=== PATIENT | female | born 1985 | race Caucasian/White ===

== ENCOUNTER 2020-02-17 14:25 | Emergency (ER) | payer MEDICAID, SELFPAY ==
[2020-02-17 14:26] VITALS: BP 120/69; PULSE 113; RESP 16; TEMP 36.4; O2SAT 95; BMI 29.8
--- NOTE | 2020-02-17 14:44 | RAD_ITS ---
STUDY: X-RAY - LEFT FOOT CLINICAL: Female, 34 years old. lateral side pain, fall TECHNIQUE: 3 view(s) of the foot. COMPARISON: None. FINDINGS: Normal talus, calcaneus, and tarsal bones. Normal visualized subtalar, talonavicular, calcaneocuboid, tarsal and tarsometatarsal articulations. Normal metatarsi. Normal metatarsophalangeal joint of the great toe. Normal tibial and fibular sesamoid bones. Normal interphalangeal joint of the great toe. Normal phalanges of the great toe. Normal second through fifth metatarsophalangeal joints. Normal interphalangeal joints and phalanges of the lesser toes. The soft tissue structures are unremarkable. RAD/Foot min 3 Views IMPRESSION: Normal x-ray examination of the foot. Electronically Signed: Vipul Phelan, at 16:16 EST Tel , Service support ,
--- NOTE | 2020-02-17 14:44 | RAD_ITS ---
STUDY: X-RAY - LEFT ANKLE REASON FOR EXAM: Female, 34 years old. lateral side pain, fall TECHNIQUE: 3 view(s) of the ankle. COMPARISON: None. FINDINGS: Normal visualized distal tibia and fibula. Normal medial and lateral malleoli. Normal tibiotalar articulation and ankle mortise. Normal visualized talus and calcaneus. The visualized subtalar, talonavicular, calcaneocuboid and tarsal articulations are normal. The soft tissue structures are unremarkable. RAD/Ankle min 3 Views IMPRESSION: Normal x-ray examination of the ankle. Electronically Signed: Billie Arenas MD at 16:24 EST , Service support ,
--- NOTE | 2020-02-17 14:51 | ED.DCSUM_ITS ---
History of Present Illness Chief Complaint: Lower Extremity Injury Informant: Patient Occurred: Yesterday Mechanism/Context: Fall Onset: Yesterday Context: Sudden Onset Timing: Continuous Quality of Pain: Sharp Location: Left ankle Current Severity: Moderate Maximum Severity: Severe Worsened by: Walking Relieved by: Nothing Associated Symptoms: Negative for: Parasthesia, Weakness, Loss of Funtion Narrative: 34-year-old female presents with left ankle and foot pain. She slipped down 1 step outside yesterday and the ice. Woke up this morning with worsened pain and swelling and bruising. She is having difficulty bearing weight. No numbness or tingling. She had no other injuries from the fall yesterday and did not hit her head or lose consciousness Tetanus Immunization: Unknown Prior similar symptoms: No Recent Illness/Hospitalization: No Past Medical History - Allergies and Home Meds Allergies/Adverse Reactions: Allergies morphine Allergy (Verified 02/17/20 14:26) Hives Primary Care Physician: Jose Arevalo MD [Primary Care Provider] - Prior records reviewed: Yes Past Medical History: None Surgical History: no surgical history Lives: With Family Smoking Status: Current every day smoker Review of Systems All systems negative except as indicated General: Denies: Chills, Fever, Sweats Eyes: Denies: Visual changes - bilaterally, Diplopia ENT: Denies: Rhinorrhea, Sore throat Cardiovascular: Denies: Chest pain, Palpitations Respiratory: Denies: Dyspnea, Cough, Dyspnea on exertion Gastrointestinal: Denies: Abdominal pain, Nausea, Vomiting, Diarrhea, Melena, Hematochezia Genitourinary: Denies: Dysuria, Hematuria, Frequency Musculoskeletal: Reports: Swelling, Extremity Pain. Denies: Back pain Skin: Denies: Rash, Wounds Neurological: Denies: Headache, Weakness, Numbness Physical Exam Vital Signs/Narrative: Vital Signs Temp Pulse Resp BP Pulse Ox 02/17/20 14:26 97.5 F L 113 H 16 120/69 95 Inital Vital Signs reviewed: Yes - Extremity Exam Left Ankle: Contusion, Edema, - - Patient has swelling and bruising left lateral malleolus and lateral foot. Diffusely tender over lateral malleolus and the fourth and fifth metatarsals. Skin is intact. Normal DP and PT pulses. Normal capillary refill and sensation of all 5 toes. No pain over calcaneus no proxim al fibular TTP General: Well nourished, Well developed Head: Normocephalic, Atraumatic Eyes: Perrl, EOMI ENT: No Trauma, Moist Mucous Membranes Neck: Nontender, Full ROM Cardiovascular: Regular rate, Regular rhythm, No murmurs Respiratory: No distress, CTA bilaterally, Chest nontender Abdomen: Soft, Nontender, Nondistended, Normal bowel sounds Back: Nontender Skin: Normal color, No rash Neurological: Alert, Oriented x3, Cranial nerves II-XII grossly intact, Normal Strength, Normal Sensation Psychological: Normal affect Diagnostic/Tx/Re-eval Impressions Ankle X-Ray 02/17/20 14:44 IMPRESSION: Normal x-ray examination of the ankle. Electronically Signed: Billie Arenas MD at 16:24 EST , Service support , Foot X-Ray 02/17/20 14:44 IMPRESSION: Normal x-ray examination of the foot. Electronically Signed: Vipul Phelan at 16:16 EST Tel , Service support , 02/17/20 14:44 Foot min 3 Views [RAD] Stat XRAY Ankle [Ankle min 3 Views] [RAD] Stat - Medical Decision Making Pain was treated with Tylenol. X-rays of the left ankle and foot showed no acute findings. Patient will be placed in an Aircast. She states that she has crutches at home. She will rest ice and use [id number] Motrin Tylenol for pain and swelling and follow-up with her family doctor. ED Disposition - Plan for ED Patient: Disposition: Home or Assisted Living Diagnosis: Left ankle sprain Instructions: ED Sprain Ankle W X Ray Referrals: Jose Arevalo MD [Primary Care Provider] -
[2020-02-17] MEDS: Acetaminophen 500 MG Tablet 1000 MG PO (15:52)
[2020-02-17 16:56] VITALS: BP 108/72; PULSE 64; RESP 15; O2SAT 98
== END 2020-02-17 16:57 | disposition home or self-care (01) ==
PROVIDERS: Emergency Provider Physician Assistant Medical; PCP Family Medicine
DX: S93.402A Sprain of unspecified ligament of left ankle, initial encounter (principal); W00.1XXA Fall from stairs and steps due to ice and snow, initial encounter; Y93.89 Activity, other specified; Y92.89 Other specified places as the place of occurrence of the external cause; Y99.9 Unspecified external cause status; F17.200 Nicotine dependence, unspecified, uncomplicated; Z88.5 Allergy status to narcotic agent
CPT/HCPCS: 73610; 73630; 99283

== ENCOUNTER 2020-10-19 09:15 | Emergency (ER) | payer MEDICAID, SELFPAY ==
[2020-10-19 09:16] VITALS: BP 117/84; PULSE 90; RESP 20; TEMP 36.6; O2SAT 98; BMI 31.1
--- NOTE | 2020-10-19 09:26 | RAD_ITS ---
STUDY: X-RAY - RIGHT SHOULDER REASON FOR EXAM: Female, 35 years old. injury TECHNIQUE: 4 view(s) of the shoulder. COMPARISON: None. FINDINGS: Normal glenohumeral articulation. Normal acromioclavicular joint. Normal acromion. Normal humeral head and visualized proximal humerus. The soft tissue structures are unremarkable. Normal visualized pulmonary apex. RAD/Shoulder min 2 Views IMPRESSION: Normal x-ray examination of the shoulder. Electronically Signed: Curly Oliveros MD at 10:03 EDT Tel , Service support ,
--- NOTE | 2020-10-19 09:26 | RAD_ITS ---
STUDY: X-RAY - RIGHT ELBOW REASON FOR EXAM: Female, 35 years old. injury TECHNIQUE: 4 view(s) of the elbow. COMPARISON: None. FINDINGS: Normal visualized humerus, radius and ulna. Normal radiocapitellar and ulnotrochlear articulations. The soft tissue structures are unremarkable. RAD/Elbow min 3 Views IMPRESSION: Normal x-ray examination of the elbow. Electronically Signed: Curly Oliveros MD at 10:03 EDT Tel , Service support ,
--- NOTE | 2020-10-19 10:04 | EX.ED.UPPERE ---
HPI History of Present Illness Chief Complaint: Upper Extremity Injury Informant: patient Onset/Context/Timing Onset: Yesterday Context: Sudden Onset (fell) Timing: Continuous Location: R shoulder and elbow Current Severity: Severe Maximum Severity: Severe Worsened by: movement Relieved by: nothing Associated Symptoms Associated Symptoms: Positive for Loss of Funtion (hurts too bad to move); Negative for Parasthesia and Weakness Narrative Narrative: Patient states she was intoxicated last night and fell and does not remember how she landed but woke up with severe pain in her right shoulder and less in her elbow. [id number]. No other injuries. PFSH PFSH no medical history Home Medications tramadol 50 mg PO Q4H PRN PRN 2 Days #10 tab 10/19/20 [Rx Last Taken Unknown] Allergy/AdvReac Type Severity Reaction Status Date / Time morphine Allergy Hives Verified 10/19/20 09:17 Social History Smoking Status: Current every day smoker tobacco type: cigarettes ROS ROS ED Constitutional Constitutional ED: Denies chills or fever(s) Musculoskeletal Musculoskeletal: Reports extremity pain; Denies neck pain Integumentary Denies Abrasions, rash or wounds Neurologic Neurologic: Denies paresthesias or weakness EXAM Physical Exam Const Vital Signs: 10/19/20 09:16 Temperature 97.9 F Temperature Source Temporal Pulse Rate 90 Respiratory Rate 20 H Blood Pressure 117/84 H Blood Pressure Mean 95 Pulse Ox 98 Oxygen Delivery Method Room Air Positive well nourished and well developed General Appearance ED: well developed and NAD Neck full ROM and supple Back/Spine normal ROM and normal to inspection Extremity Extremity Narrative: Limited range of motion right shoulder due to pain. She can abduct about 20 degrees. No deformities. Pain is mostly anterior, she is tender at the acromioclavicular joint mostly. There is minor tenderness anteriorly about the shoulder girdle caudal to the AC joint, but she has a negative Yergason. Nontender scapula, acromion, subacromial fossa, humerus. Able to range the elbow fine, mildly tender at the olecranon process, painless supination and pronation without tenderness at the radial head. Neuro oriented x3, no focal motor deficits and no sensory deficits noted Sensorium / Orientation: alert Psych mental status grossly normal and thought process normal Skin no wounds Rashes: no rashes MDM MDM MDM Narrative Medical decision making narrative: X-rays of the right elbow and shoulder are obtained. My interpretation both are normal. In my judgment clinically and radiographically, this is consistent with an acromioclavicular separation type I, or sprain, given the amount of discomfort she is in for normal x-rays and the area of discomfort and tenderness. She is placed in a sling given Naprosyn and a prescription for tramadol since she is driving. Orthopedic follow-up if not better in 1 week. Discharge Plan Triage Chief Complaint: Upper Extremity Injury ED Provider: Mitch Jara Dx/Rx/DC Orders Clinical Impression: Separation of right acromioclavicular joint, type 1, Contusion of elbow, right Instructions: ED Sprain AC Joint, ED Sling Prescriptions: New tramadol 50 MG tablet 50 mg PO Q4H PRN PRN (Reason: Pain) 2 Days Qty: 10 RF: 0 Primary Care Provider: Jose Arevalo Referrals: Jose Arevalo MD [Primary Care Provider] - Jarvis Guevara MD [STAFF PHYSICIAN] - 1 Week if not improving Disposition Disposition: Home, Self Care
[2020-10-19] MEDS: Ondansetron ODT 4 MG Tablet 8 MG PO (10:24)
[2020-10-19 10:27] VITALS: RESP 16
[2020-10-19] MEDS: Naproxen 250 MG Tablet 500 MG PO (10:28)
== END 2020-10-19 10:32 | disposition home or self-care (01) ==
LOC: ED 10:12
PROVIDERS: Emergency Provider Emergency Medicine; PCP Family Medicine
DX: S43.101A Unspecified dislocation of right acromioclavicular joint, initial encounter (principal); S50.01XA Contusion of right elbow, initial encounter; W19.XXXA Unspecified fall, initial encounter; Y93.9 Activity, unspecified; Y92.89 Other specified places as the place of occurrence of the external cause; Y99.8 Other external cause status; F17.210 Nicotine dependence, cigarettes, uncomplicated; F10.129 Alcohol abuse with intoxication, unspecified; Y90.9 Presence of alcohol in blood, level not specified
CPT/HCPCS: 73030; 73080; 99284

== ENCOUNTER 2021-02-07 17:00 | Emergency (ER) | payer MEDICAID, SELFPAY ==
[2021-02-07 17:00] VITALS: BP 138/97; PULSE 90; RESP 16; TEMP 35.9; O2SAT 100; BMI 30.7
--- NOTE | 2021-02-07 17:22 | EX.ED.DYSGE1 ---
HPI History of Present Illness Chief Complaint: Dental Informant: patient Narrative Narrative: 35-year-old female presenting to the emergency room with dental pain. Patient states that she has appointment 3 weeks to see her dentist. Today she developed significant pain in the lower posterior right tooth and the upper posterior right tooth with pain radiating up towards her head. She notes sensitivity with smoking and drinking. She denies any facial swelling or difficulty swallowing PFSH PFSH Home Medications tramadol 50 mg PO Q4H PRN PRN 2 Days #10 tab 10/19/20 [Rx Last Taken Unknown] hydrocodone-acetaminophen 1 tab PO Q6H PRN PRN 3 Days #12 tablet 02/07/21 [Rx Last Taken Unknown] penicillin V potassium 500 mg PO 4X/DAY #40 tab 02/07/21 [Rx Last Taken Unknown] Allergy/AdvReac Type Severity Reaction Status Date / Time morphine Allergy Hives Verified 02/07/21 17:02 Social History (Updated 02/07/21 @ 17:[address] Yan Smallwood, DO) Smoking Status: Current every day smoker tobacco type: cigarettes substance use type: does not use ROS ROS ED Constitutional Constitutional ED: Denies chills or weight loss Eyes Eyes: Denies change in vision or diplopia ENT ENT ED: Reports other Details: Dental pain ; Denies ear pain, rhinorrhea or sore throat Cardiovascular Cardiovascular: Denies chest pain, orthopnea, palpitations or racing heartbeat Respiratory/Chest Respiratory/Chest: Denies cough, dyspnea or orthopnea Gastrointestinal Gastrointestinal: Denies abdominal pain, diarrhea, nausea or vomiting Genitourinary Genitourinary ED: Denies dysuria, hematuria or urinary frequency Musculoskeletal Musculoskeletal: Denies arthralgias or myalgias Integumentary Denies abscess or rash Neurologic Neurologic: Denies headache(s) or weakness Psychiatric Psychiatric: Denies anxiety, depression, suicidal ideation or suicidal thoughts Endocrine Endocrinology: Denies polydipsia, polyphagia or polyuria Allergic/Immunologic Allergic/Immunologic ED: Denies mouth swelling, tongue swelling or urticaria EXAM Physical Exam Const Vital Signs: 02/07/21 17:00 Temperature 96.6 F L Temperature Source Temporal Pulse Rate 90 Respiratory Rate 16 Blood Pressure 138/97 H Blood Pressure Mean 110 Pulse Ox 100 Oxygen Delivery Method Room Air Positive well nourished and well developed General Appearance ED: well developed HEENT Reports normocephalic, head/scalp atraumatic, TM's clear and moist mucous membranes HEENT Narrative: There is significant decay of the right lower posterior most molar. There is tenderness to palpation of the right posterior upper molar. No facial swelling or erythema noted. No trismus. Floor the mouth is soft. There is no obvious abscess along the gumline Negative for trauma Tympanic Membrane ED: Yes TM's clear Eyes PERRL and EOMs intact bilaterally Neck no lymphadenopathy, supple and no JVD Resp normal respiratory effort and clear to auscultation bilaterally Cardio regular rate, regular rhythm and no murmurs GI normal to inspection, nondistended, normoactive bowel sounds and non-tender Palpation: soft Back/Spine no CVA tenderness and normal ROM Extremity normal to inspection General Extremety ED: Negative for edema General Extremity: Negative for edema Neuro oriented x3 and CN's II-XII intact bilaterally Sensorium / Orientation: alert Motor Exam: strength 5/5 throughout Psych mental status grossly normal Mood & Affect: Negative for depressed or tearful Skin no rashes or lesions noted and no wounds MDM MDM MDM Narrative Medical decision making narrative: Patient be started on antibiotics pain medication. Follow-up with dentistry as soon as able to Discharge Plan Triage Chief Complaint: Dental ED Provider: Yan Smallwood Dx/Rx/DC Orders Clinical Impression: Pain due to dental caries Instructions: ED Dental Pain Prescriptions: New hydrocodone-acetaminophen [hydrocodone-acetaminophen] 1 TABLET tablet 1 tab PO Q6H PRN PRN (Reason: Pain) 3 Days Qty: 12 RF: 0 penicillin V potassium 500 MG tablet 500 mg PO 4X/DAY Qty: 40 RF: 0 No Action tramadol 50 MG tablet 50 mg PO Q4H PRN PRN (Reason: Pain) 2 Days Qty: 10 RF: 0 Primary Care Provider: Care Physician,No Primary Referrals: Care Physician,No Primary [Primary Care Provider] - Activity Restrictions/Additional Instructions: Follow-up with your dentist as soon as possible Disposition Disposition: Home, Self Care
== END 2021-02-07 17:47 | disposition home or self-care (01) ==
PROVIDERS: Emergency Provider Emergency Medicine
DX: K02.9 Dental caries, unspecified (principal); F17.210 Nicotine dependence, cigarettes, uncomplicated
CPT/HCPCS: 99282

== ENCOUNTER 2021-02-12 05:44 | Emergency (ER) | payer MEDICAID, SELFPAY ==
[2021-02-12 05:45] VITALS: BP 132/85; PULSE 78; RESP 18; TEMP 36.6; O2SAT 97; BMI 37.5
--- NOTE | 2021-02-12 06:25 | EDS_ITS ---
HPI History of Present Illness Chief Complaint: Dental Detail of Chief Complaint: Dental pain that started 1 week ago Informant: patient Narrative Narrative: Patient presents to the ER with complaint of dental pain that started a week ago. Patient has an appointment with a dentist in 2 weeks. She was seen in the emergency department 6 days ago and started on penicillin and hydrocodone which she has run out of and continues to have pain. Patient denies any fevers. She denies any trauma although she states she has a broken and decayed tooth. PFSH PFSH Home Medications hydrocodone-acetaminophen 1 tab PO Q6H PRN PRN 3 Days #12 tablet 02/07/21 [Rx Last Taken Unknown] penicillin V potassium 500 mg PO 4X/DAY #40 tab 02/07/21 [Rx Last Taken Unknown] oxycodone-acetaminophen 1 tab PO Q6H PRN PRN 3 Days #15 tablet 02/12/21 [Rx Last Taken Unknown] Allergy/AdvReac Type Severity Reaction Status Date / Time morphine Allergy Hives Verified 02/12/21 05:48 Surgical History (Updated 02/12/21 @ 05:49 by Caitie Chauhan) History of cholecystectomy Social History (Updated 02/07/21 @ 17:[address] Yan Smallwood, DO) Smoking Status: Current every day smoker tobacco type: cigarettes substance use type: does not use ROS ROS ED Constitutional Constitutional ED: Reports systems reviewed and no addt'l complaints, except as documented; Denies body ache(s), change in weight or chills Eyes Eyes: Denies acute decrease in peripheral vision, change in vision, double vision or loss of vision ENT ENT ED: Reports none and other Details: Dental pain ; Denies ear pain, lip swelling, loss taste/smell, neck pain, otalgia or sore throat Cardiovascular Cardiovascular: Reports none; Denies abdominal pain, chest pain with activity, leg edema, lightheadedness, palpitations, rapid heart rate or syncope Respiratory/Chest Respiratory/Chest: Reports none; Denies change in mental status, dry cough, dyspnea, hemoptysis, shortness of breath at rest or shortness of breath with exertion Gastrointestinal Gastrointestinal: Reports none; Denies abdominal pain, change in stool character, diarrhea, hematemesis, hematochezia, melena, rectal bleeding or vomiting Genitourinary Genitourinary ED: Reports none; Denies abdominal discomfort, anuria, dysuria, genital pain or polyuria Musculoskeletal Musculoskeletal: Reports none; Denies arthralgias, back pain, difficulty walking, extremity pain, muscle weakness or myalgias Integumentary Reports none; Denies abscess or rash Neurologic Neurologic: Reports none; Denies abnormal gait, confusion, focal weakness, freq uent falls, headache(s), loss of vision, numbness, paresthesias, radicular pain, vertigo or weakness Psychiatric Psychiatric: Reports systems reviewed and no addt'l complaints, except as documented and none; Denies behavioral changes, confusion, difficulty concentrating, hallucinations, suicidal ideation, tactile hallucinations or visual hallucinations Endocrine Endocrinology: Denies none, cold intolerance, excessive sweating, fatigue or heat intolerance Hematologic/Lymphatic Hematologic/Lymphatic: Reports none; Denies anemia, easy bleeding or easy bruising Allergic/Immunologic Allergic/Immunologic ED: Denies as per HPI, none, lip swelling, mouth swelling, throat swelling, tongue swelling or hives EXAM Physical Exam Const Vital Signs: 02/12/21 05:45 Temperature 98 F Temperature Source Temporal Pulse Rate 78 Respiratory Rate 18 Blood Pressure 132/85 H Blood Pressure Mean 100 Pulse Ox 97 Oxygen Delivery Method Room Air Positive well nourished and well developed General Appearance ED: well developed and NAD HEENT Reports TM's clear and moist mucous membranes HEENT Narrative: Patient has a broken and carried right lower molar that is tender to palpation. No gingival erythema or abscess noted. No trismus on exam. No adenopathy. normocephalic and atraumatic; Negative for trauma or tenderness Tympanic Membrane ED: Yes TM's clear Eyes PERRL and EOMs intact bilaterally General Eye ED: Negative for pale conjunctiva or scleral icterus Neck no lymphadenopathy, supple and no JVD General: Negative for tenderness Chest Wall inspection of chest normal and palpation of chest normal Chest: Negative for tenderness Resp normal respiratory effort and clear to auscultation bilaterally Effort and Inspection: Negative for respiratory distress or pain with movement Auscultation: Negative for rhonchi, wheezes or diminished lung sounds Cardio regular rate, regular rhythm, S1 normal heart sound, S2 normal heart sound and no murmurs Peripheral Pulses: pulses 2+ throughout GI normal to inspection, nondistended, normoactive bowel sounds, soft to palpation, non-tender, non-distended and no masses Back/Spine no CVA tenderness and no thoracic nor lumbar tenderness Extremity normal to inspection General Extremety ED: Negative for edema General Extremity: Negative for edema Neuro oriented x3, CN's II-XII intact bilaterally, no sensory deficits noted and gait normal Sensorium / Orientation: awake, alert, oriented to person, oriented to place and oriented to time Motor Exam: strength 5/5 throughout and strength abnormal Psych mental status grossly normal Skin no rashes or lesions noted and no wounds MDM MDM MDM Narrative Medical decision making narrative: Patient was given 1 dose of OxyIR p.o. Patient will be given a list of dentists in the area so she can try and get in sooner than 2 weeks. Patient to continue with her penicillin. She will be given a prescription for few Percocet for pain. Discharge Plan Triage Chief Complaint: Dental ED Provider: Arturo Etienne Dx/Rx/DC Orders Clinical Impression: Pain, dental Instructions: ED Dental Pain Prescriptions: New oxycodone-acetaminophen [oxycodone-acetaminophen] 1 TABLET tablet 1 tab PO Q6H PRN PRN (Reason: Pain) 3 Days Qty: 15 RF: 0 No Action hydrocodone-acetaminophen [hydrocodone-acetaminophen] 1 TABLET tablet 1 tab PO Q6H PRN PRN (Reason: Pain) 3 Days Qty: 12 RF: 0 penicillin V potassium 500 MG tablet 500 mg PO 4X/DAY Qty: 40 RF: 0 Primary Care Provider: Care Physician,No Primary Referrals: Care Physician,No Primary [Primary Care Provider] - Activity Restrictions/Additional Instructions: See a dentist Disposition Disposition: Home, Self Care
[2021-02-12] MEDS: oxyCODONE 5 MG Tablet PO (06:41)
== END 2021-02-12 06:47 | disposition home or self-care (01) ==
PROVIDERS: Emergency Provider Emergency Medicine
DX: K08.89 Other specified disorders of teeth and supporting structures (principal); F17.210 Nicotine dependence, cigarettes, uncomplicated
CPT/HCPCS: 99283

== ENCOUNTER 2021-03-10 12:23 | Emergency (ER) | payer MEDICAID, SELFPAY ==
[2021-03-10 12:27] VITALS: BP 129/84; PULSE 103; RESP 18; TEMP 36.6; O2SAT 95; BMI 35.1
--- NOTE | 2021-03-10 13:26 | ED.RN ---
Saud, volunteer, notified this RN that patient left. Pt did not say anything to this nurse. PT left prior to being seen by physician. Notified registration.
== END 2021-03-10 13:23 | disposition left against medical advice (07) ==
LOC: ED 13:29
DX: Z53.21 Procedure and treatment not carried out due to patient leaving prior to being seen by health care provider (principal)

== ENCOUNTER 2021-07-13 18:03 | Emergency (ER) | payer MEDICAID, SELFPAY ==
[2021-07-13 18:04] VITALS: BP 125/86; PULSE 99; RESP 18; TEMP 36.8; O2SAT 99; BMI 32.0
--- NOTE | 2021-07-13 18:31 | ED.VIS.DENTA ---
HPI History of Present Illness Chief Complaint: Dental Informant: patient Narrative Narrative: Patient states she is having pain on the right lower jaw. This is been hurting for 3 or 4 days. She is trying to get into see a dentist but cannot get an appointment for about 3 weeks. She woke up today and she has a little swelling on the side of her face. No fevers chills or sweats. No trouble swallowing. No chest pain. She denies allergies or intolerance to medicines other than morphine causing hives. No problem with antibiotics. PFSH PFSH Home Medications hydrocodone-acetaminophen 1 tab PO Q6H PRN PRN 3 Days #12 tablet 02/07/21 [Rx Last Taken Unknown] penicillin V potassium 500 mg PO 4X/DAY #40 tab 02/07/21 [Rx Last Taken Unknown] oxycodone-acetaminophen 1 tab PO Q6H PRN PRN 3 Days #15 tablet 02/12/21 [Rx Last Taken Unknown] naproxen 500 mg PO BID #20 tab 07/13/21 [Rx Last Taken Unknown] penicillin V potassium 500 mg PO 4X/DAY #40 tab 07/13/21 [Rx Last Taken Unknown] Allergy/AdvReac Type Severity Reaction Status Date / Time morphine Allergy Hives Verified 07/13/21 18:05 Surgical History History of cholecystectomy Social History Smoking Status: Current every day smoker tobacco type: e-cigarettes substance use type: does not use ROS ROS ED Constitutional Constitutional ED: Denies chills or fever(s) Eyes Eyes: Denies blurry vision or change in vision ENT ENT ED: Reports other Details: See history of present illness. ; Denies ear pain, rhinorrhea or sore throat Cardiovascular Cardiovascular: Denies chest pain Respiratory/Chest Respiratory/Chest: Denies cough or dyspnea Gastrointestinal Gastrointestinal: Denies nausea or vomiting Musculoskeletal Musculoskeletal: Denies neck pain Integumentary Denies rash Hematologic/Lymphatic Hematologic/Lymphatic: Denies easy bleeding or easy bruising Allergic/Immunologic Allergic/Immunologic ED: Reports mouth swelling; Denies tongue swelling or urticaria EXAM Physical Exam Const Vital Signs: 07/13/21 18:04 Temperature 98.2 F Temperature Source Temporal Pulse Rate 99 Respiratory Rate 18 Blood Pressure 125/86 H Blood Pressure Mean 99 Pulse Ox 99 Oxygen Delivery Method Room Air Positive well nourished and well developed General Appearance ED: well developed and NAD HEENT HEENT Narrative: There does appear to be some subtle swelling along the edge of the mandible externally. No lymphadenopathy. No erythema. She has erosion and large dental carry of molar on the posterior aspect of the right jaw. There is some increased erythema around this mostly laterally and in front of the molar. Floor the mouth is soft and nontender. No pain with tongue motion. Voice is normal. Handling secretions is normal. No indication of Ludewig's angina. Negative for trauma or tenderness Eyes PERRL and EOMs intact bilaterally Neck no lymphadenopathy and supple Resp normal respiratory effort Neuro Sensorium / Orientation: alert Psych mental status grossly normal Skin no rashes or lesions noted MDM MDM MDM Narrative Medical decision making narrative: Patient has signs of developing dental abscess. However, no sign of Raven's. We did discuss reasons to return including pain with swallowing, further swelling, change in voice, dyspnea or other concerns. She will follow-up with dentist if none of the above issues occur. We will get her on nonsteroidals and penicillin. Discharge Plan Triage Chief Complaint: Dental ED Provider: Perfecto Foley Dx/Rx/DC Orders Clinical Impression: Dental abscess Instructions: ED Dental Abscess Prescriptions: New penicillin V potassium 500 MG tablet 500 mg PO 4X/DAY Qty: 40 RF: 0 naproxen 500 MG tablet 500 mg PO BID Qty: 20 RF: 0 No Action hydrocodone-acetaminophen [hydrocodone-acetaminophen] 1 TABLET tablet 1 tab PO Q6H PRN PRN (Reason: Pain) 3 Days Qty: 12 RF: 0 penicillin V potassium 500 MG tablet 500 mg PO 4X/DAY Qty: 40 RF: 0 oxycodone-acetaminophen [oxycodone-acetaminophen] 1 TABLET tablet 1 tab PO Q6H PRN PRN (Reason: Pain) 3 Days Qty: 15 RF: 0 Primary Care Provider: Care Physician,No Primary Referrals: Care Physician,No Primary [Primary Care Provider] - Activity Restrictions/Additional Instructions: Follow up with your dentist as soon as possible. Disposition Disposition: Home, Self Care
[2021-07-13] MEDS: Penicillin Vk 250 MG Tablet 500 MG PO (18:42)
[2021-07-13] MEDS: Naproxen 500 MG Tablet PO (18:44)
== END 2021-07-13 18:45 | disposition home or self-care (01) ==
LOC: ED 18:43
PROVIDERS: Emergency Provider Emergency Medicine; Visit Provider Emergency Medicine
DX: K04.7 Periapical abscess without sinus (principal); F17.210 Nicotine dependence, cigarettes, uncomplicated
CPT/HCPCS: 99283